=== PATIENT | female | born 1985 | race Two or more races ===

== ENCOUNTER 2018-08-30 14:54 | Emergency (ER) | payer OTHER ==
[~2018-08-30] VITALS: Ht 154.9 cm; Wt 78.5 kg
== END 2018-08-30 17:52 | disposition home or self-care (01) ==
LOC: ER 14:54
DX: J11.1 Influenza due to unidentified influenza virus with other respiratory manifestations (principal); B96.0 Mycoplasma pneumoniae [M. pneumoniae] as the cause of diseases classified elsewhere

== ENCOUNTER 2024-09-11 08:00 | Day surgery (SDC) | payer OTHER ==
[2024-09-11] MEDS ORDERED: POVIDONE-IODINE 118 ML BOTT TOP ONE (15:00)
== END 2024-09-11 19:25 | disposition home or self-care (01) ==
LOC: CIR.AMB 08:00
PROVIDERS: ATTEND Obstetrics & Gynecology
DX: D06.9 Carcinoma in situ of cervix, unspecified (principal); J45.909 Unspecified asthma, uncomplicated; Z88.0 Allergy status to penicillin